=== PATIENT | female | born 1970 | race American Indian/Alaskan Native ===

== ENCOUNTER 2020-10-07 19:12 | Observation (INO) | payer MEDICARE ==
[2020-10-07] MEDS ORDERED: ALBUTEROL 2.5 MG/3 ML NEBU IH ONE ×2 (19:26→22:13)
[2020-10-07] MEDS ORDERED: dexAMETHasone 20 MG/5 ML VIAL IV ONE (19:26)
[2020-10-07] MEDS ORDERED: IPRATROPIUM 0.02% NEBU 2.5 ML IH ONE ×2 (19:26→22:13)
--- NOTE | 2020-10-07 19:28 | Event Note ---
ED Screening Note ED Screening Note: chest tightness, SOB, wheezing, cough that began yesterday used breathing treatment and inhaler without much relief no fever, n/v/d no sick contact no recent travel recently discharged from the hospital PMHx asthma, HTN This initial assessment/diagnostic orders/clinical plan/treatment(s) is/are subject to change based on patients health status, clinical progression and re- assessment by fellow clinical providers in the ED. Further treatment and workup at subsequent clinical providers discretion. Patient/guardian urged not to elope from the ED as their condition may be serious if not clinically assessed and managed. Initial orders include: labs, CXR, meds
[2020-10-07 19:43] LABS: Basophils # (Auto) 0.1 K/mm3 (0.0-0.1); Basophils % (Auto) 1.2 % (0.0-1.8); Eosinophils # (Auto) 0.4 K/mm3 (0.0-0.4); Eosinophils % (Auto) 7.8 % (0.0-4.3); Hematocrit 34.5 % (30.3-42.9); Hemoglobin 11.6 gm/dl (10.1-14.3); Lymphocytes # (Auto) 2.1 K/mm3 (1.2-5.4); Lymphocytes % (Auto) 39.1 % (13.4-35.0); Mean Corpuscular HGB Conc 34 % (30-34); Mean Corpuscular Volume 96 fl (79-97); Monocytes # (Auto) 0.4 K/mm3 (0.0-0.8); Monocytes % (Auto) 7.7 % (0.0-7.3); Platelet Count 209 K/mm3 (140-440); Red Cell Distribution Width 13.3 % (13.2-15.2)
[2020-10-07 20:40] LABS: Albumin 3.4 g/dL (3.9-5); Calcium 8.7 mg/dL (8.4-10.2)
--- NOTE | 2020-10-07 21:57 | XRay Report ---
CHEST 2 VIEWS INDICATION / CLINICAL INFORMATION: SOB, cough, chest tightness. COMPARISON: 10/01/2020 FINDINGS: SUPPORT DEVICES: Stable, satisfactory device positioning. HEART / MEDIASTINUM: Cardiac silhouette may be slightly enlarged when compared to 10/01/2020. No signi ficant mediastinal or hilar contour abnormality. LUNGS / PLEURA: Increased interstitial opacities with Juan Francisco B-lines. Possible small bilateral pleura l effusions. No pneumothorax. ADDITIONAL FINDINGS: No significant additional findings. IMPRESSION: 1. Findings concerning for mild-moderate CHF/pulmonary edema. Signer Name: Leo Bradley MD Signed: 10/07/2020 9:53 PM Workstation Name: [id number]
[2020-10-07] MEDS ORDERED: MAGNESIUM SULFATE 2 GM/50 ML BAG IV ONE (22:03)
[2020-10-07] MEDS ORDERED: methylPREDNISolone Sod Succinate 125 MG/2 ML INJ IV ONE (22:03)
--- NOTE | 2020-10-07 22:07 | Emergency Department Report ---
HPI - General Chief Complaint: Dyspnea/Respdistress Time Seen by Provider: 10/07/20 19:23 - HPI HPI: Room 34 The patient is a 50-year-old female present with a chief complaint of cough and shortness of breath. The patient states she presents emergency department for shortness of breath which began this morning. Patient states for the past 3 days she has had a cough occasionally productive of pink frothy sputum. Patient states she is also had chest soreness that worsens whenever she coughs. Patient denies history of fever, nausea/vomiting or known COVID-19 contacts. Of note the patient was recently admitted to this hospital and intubated secondary to presumed opiate overdose. Patient was eventually discharged 10/02/2020 ED Past Medical Hx - Past Medical History Previous Medical History?: Yes Hx Hypertension: Yes Hx Psychiatric Treatment: Yes (depression) Hx Asthma: Yes Additional medical history: Pacemaker. DDD - Surgical History Past Surgical History?: Yes Hx Pacemaker: Yes Additional Surgical History: Pacemaker. gastric bypass - Family History Family history: no significant - Social History Smoking Status: Former Smoker (None x1 year) Substance Use Type: None (Denies illicit drug use) - Medications Home Medications: Home Medications Medication Instructions Recorded Confirmed Last Taken Type Gabapentin [Neurontin] 600 mg PO Q8H 09/30/20 09/30/20 Unknown History Zolpidem [Ambien] 10 mg PO QHS PRN 09/30/20 09/30/20 Unknown History oxyCODONE /ACETAMINOPHEN [Percocet 1 tab PO Q8H PRN 09/30/20 09/30/20 Unknown H istory 5/325 mg] tiZANidine [Zanaflex 4mg TAB] 4 mg PO QHS PRN 09/30/20 09/30/20 Unknown History Sertraline [Zoloft] 150 mg PO QDAY 30 Days #30 tab 10/02/20 Unknown Rx Ziprasidone [Geodon] 40 mg PO BID 10/02/20 10/02/20 Unknown History traZODone [Desyrel] 100 mg PO QHS 10/02/20 10/02/20 Unknown History ED Review of Systems ROS: Stated complaint: BOLA/CHEST TIGHTNESS Other details as noted in HPI Constitutional: denies: fever Eyes: denies: eye pain ENT: denies: throat pain Respiratory: cough, shortness of breath Cardiovascular: dyspnea on exertion Endocrine: no symptoms reported Gastrointestinal: denies: nausea, vomiting Genitourinary: denies: dysuria Musculoskeletal: myalgia (Chest soreness with cough) Neurological: denies: headache Physical Exam - Physical Exam Vital Signs: Vital Signs 10/07/20 10/07/20 19:13 21:20 Temperature 99.1 F Pulse Rate 22 L Pulse Rate [ 66 Bilateral Throughout] Respiratory 22 Rate Respiratory 24 Rate [Bilateral Throughout] Blood Pressure 184/110 O2 Sat by Pulse 95 Oximetry Physical Exam: GENERAL: The patient is well-developed well-nourished female sitting on stretcher appearing to be in mild discomfort. [] HEENT: Normocephalic. Atraumatic. Extraocular motions are intact. Patient has moist mucous membranes. NECK: Supple. Trachea midline CHEST/LUNGS: Severely diminished with diffuse wheezing. There is no respiratory distress noted. HEART/CARDIOVASCULAR: Regular. There is no tachycardia. There is no gallop rub or murmur. ABDOMEN: Abdomen is soft, nontender. Patient has normal bowel sounds. There is no abdominal distention. SKIN: There is no rash. There is trace bilateral lower extremity edema edema. There is no diaphoresis. NEURO: The patient is awake, alert, and oriented. The patient is cooperative. The patient has no focal neurologic deficits. The patient has normal speech MUSCULOSKELETAL:There is no evidence of acute injury. ED Course Vital Signs 10/07/20 10/07/20 19:13 21:20 Temperature 99.1 F Pulse Rate 22 L Pulse Rate [ 66 Bilateral Throughout] Respiratory 22 Rate Respiratory 24 Rate [Bilateral Throughout] Blood Pressure 184/110 O2 Sat by Pulse 95 Oximetry ED Medical Decision Making - Lab Data Result diagrams: 10/07/20 19:32 10/07/20 19:32 Laboratory Tests 10/07/20 10/07/20 10/07/20 19:32 19:32 19:32 WBC 5.5 RBC 3.60 L Hgb 11.6 Hct 34.5 MCV 96 MCH 32 MCHC 34 RDW 13.3 Plt Count 209 Lymph % (Auto) 39.1 H [place] % (Auto) 7.7 H Eos % (Auto) 7.8 H Baso % (Auto) 1.2 Lymph # (Auto) 2.1 [place] # (Auto) 0.4 Eos # (Auto) 0.4 Baso # (Auto) 0.1 Seg Neutrophils % 44.2 Seg Neutrophils # 2.4 Sodium 138 Potassium 3.9 Chloride 105.5 Carbon Dioxide 22 Anion Gap 14 BUN 13 Creatinine 1.0 Estimated GFR 58 BUN/Creatinine Ratio 13 Glucose 84 Calcium 8.7 Total Bilirubin 0.30 AST 23 ALT 16 Alkaline Phosphatase 52 Total Creatine Kinase 168 H CK-MB (CK-2) 2.5 CK-MB (CK-2) Rel Index 1.4 Troponin T < 0.010 NT-Pro-B Natriuret Pep 19444 H Total Protein 6.1 L Albumin 3.4 L Albumin/Globulin Ratio 1.3 - EKG Data -: EKG Interpreted by Me Rate: normal - EKG Data When compared to previous EKG there are: previous EKG unavailable Interpretation: other (AV paced rhythm) - Radiology Data Radiology results: report reviewed (Chest x-ray), image reviewed (Chest x-ray) interpreted by me: Chest [id number] congestion. No pneumothorax. No definite focal infiltrate [facility] [address] [place] [address] XRay Report Signed Patient: TOÑA MAYER MR#: [id number] : 11/26/1969 Acct:[id number] Age/Sex: 50 / F ADM Date: 10/07/20 Loc: ED Attending Dr: Ordering Physician: JAIME KAUFMAN Date of Service: 10/07/20 Procedure(s): XR chest routine 2V Accession Number(s): [id number] cc: JAIME KAUFMAN Fluoro Time In Minutes: CHEST 2 VIEWS INDICATION / CLINICAL INFORMATION: SOB, cough, chest tightness. COMPARISON: 10/01/2020 FINDINGS: SUPPORT DEVICES: Stable, satisfactory device positioning. HEART / MEDIASTINUM: Cardiac silhouette may be slightly enlarged when compared to 10/01/2020. No significant mediastinal or hilar contour abnormality. LUNGS / PLEURA: Increased interstitial opacities with [place] Francisco B-lines. Possible small bilateral pleural effusions. No pneumothorax. ADDITIONAL FINDINGS: No significant additional findings. IMPRESSION: 1. Findings concerning for mild-moderate CHF/pulmonary edema. Signer Name: Farzad Bradley MD Signed: 10/07/2020 9:53 PM Workstation Name: [id number] Transcribed By: RH Dictated By: FARZAD BRADLEY III Electronically Authenticated By: FARZAD BRADLEY III Signed Date/Time: 10/07/202152 DD/ 50 TD/TT: - Differential Diagnosis Asthma exacerbation, bronchitis, pneumonia, new onset CHF Critical care attestation.: If time is entered above; I have spent that time in minutes in the direct care of this critically ill patient, excluding procedure time. ED Disposition Clinical Impression: New onset of congestive heart failure, Shortness of breath Disposition: OP ADMIT IP TO THIS HOSP Is pt being admited?: Yes Does the pt Need Aspirin: Yes Condition: Fair Time of Disposition: 22:50 (Hospitalist paged (Dr Seaman))
[2020-10-07] MEDS ORDERED: cloNIDine 0.2 MG TAB PO ONE (22:14)
[2020-10-07] MEDS ORDERED: fentaNYL 100 MCG/2 ML INJ IV ONE (22:19)
[2020-10-07] MEDS ORDERED: ONDANSETRON 4 MG/2 ML INJ IV ONE (22:19)
[2020-10-07 22:35] LABS: Creatine Kinase MB 2.5 ng/mL (0.0-4.0)
[2020-10-07] MEDS ORDERED: FUROSEMIDE 40 MG/4 ML INJ IV ONE (22:39)
[2020-10-07] MEDS ORDERED: ASPIRIN 325 MG TAB PO ONE (22:50)
[2020-10-07] MEDS ORDERED: ONDANSETRON 4 MG/2 ML INJ IV PRN (23:35)
[2020-10-07] MEDS ORDERED: MAGNESIUM HYDROXIDE (MOM) ORAL LIQD UDC PO PRN (23:35)
--- NOTE | 2020-10-07 23:48 | History and Physical Report ---
History of Present Illness Date of examination: 10/07/20 Date of admission: 10/07/20 22:51 Chief complaint: Cough Shortness of Breath History of present illness: 50-year-old female with known history of hypertension, asthma, depression, and history of pacemaker presenting to the emergency room today complaining of shortness of breath. Shortness of breath was said to have started early this morning. She has had occasional cough for the past 3 days which has been productive for some frothy pinkish sputum. Cough is associated with some mild chest soreness. Patient denies any fever or chills, no nausea vomiting, denies any sick contacts. Upon arrival in the emergency room he was found to be wheezing. Work-up reveals elevated BNP. Chest x-ray reveals pulmonary congestion. Patient is being admitted for new onset CHF. Past History Past Medical History: hypertension, other (Asthma,DDD,Depression) Past Surgical History: Other (Pacemaker placement,Gastric Bypass.) Social history: smoking (Former smoker) Family history: no significant family history Medications and Allergies Allergies Allergy/AdvReac Type Severity Reaction Status Date / Time No Known Allergies Allergy Verified 10/07/20 19:17 Home Medications Medication Instructions Recorded Confirmed Last Taken Type Gabapentin [Neurontin] 600 mg PO BID 09/30/20 10/08/20 Unknown History Zolpidem [Ambien] 10 mg PO QHS PRN 09/30/20 10/08/20 Unknown History oxyCODONE /ACETAMINOPHEN [Percocet 1 tab PO Q8H PRN 09/30/20 10/08/20 Unknown History 5/325 mg] tiZANidine [Zanaflex 4mg TAB] 4 mg PO QHS PRN 09/30/20 10/08/20 Unknown History Sertraline [Zoloft] 150 mg PO QDAY 30 Days #30 tab 10/02/20 10/08/20 Unknown Rx Ziprasidone [Geodon] 80 mg PO HS 10/02/20 10/08/20 Unknown History traZODone [Desyrel] 100 mg PO QHS 10/02/20 10/08/20 Unknown History Ziprasidone [Geodon] 40 mg PO AC 10/08/20 10/08/20 Unknown History Active Meds: Active Medications Acetaminophen (Acetaminophen 325 Mg Tab) 650 mg PO Q4H PRN PRN Reason: Pain MILD(1-3)/Fever >100.5/RASMUSSEN Enoxaparin Sodium (Enoxaparin 40 Mg/0.4 Ml Inj) 40 mg SUB-Q QDAY@2200 REPLACED BY [facility]; Protocol Furosemide (Furosemide 40 Mg/4 Ml Inj) 40 mg IV BID@0600,1800 [facility] Magnesium Hydroxide (Magnesium Hydroxide (Mom) Oral Liqd Udc) 30 ml PO Q4H PRN PRN Reason: Constipation Morphine Sulfate (Morphine 2 Mg/1 Ml Inj) 2 mg IV Q4H PRN PRN Reason: Pain, Moderate (4-6) Ondansetron HCl (Ondansetron 4 Mg/2 Ml Inj) 4 mg IV Q8H PRN PRN Reason: Nausea And Vomiting Sodium Chloride (Sodium Chloride 0.9% 10 Ml Flush Syringe) 10 ml IV BID REPLACED BY [facility] Sodium Chloride (Sodium Chloride 0.9% 10 Ml Flush Syringe) 10 ml IV PRN PRN PRN Reason: LINE FLUSH Review of Systems Constitutional: no fever, no chills Ears, nose, mouth and throat: no nasal congestion, no sore throat Cardiovascular: dyspnea on exertion, no chest pain, no palpitations Respiratory: cough, shortness of breath Gastrointestinal: no abdominal pain, no nausea, no vomiting, no diarrhea Genitourinary Female: no flank pain, no dysuria, no hematuria Musculoskeletal: no neck pain, no low back pain Integumentary: no rash, no pruritis Neurological: no headaches, no confusion Psychiatric: no anxiety, no depression Exam - Constitutional Vitals: Temp Pulse Resp BP Pulse Ox 99.1 F 73 15 154/94 99 10/07/20 19:13 10/07/20 23:01 10/07/20 23:01 10/07/20 23:01 10/07/20 23:01 General appearance: Present: no acute distress, well-nourished - EENT Eyes: Present: PERRL, EOM intact. Absent: scleral icterus ENT: hearing intact, clear oral mucosa, dentition normal - Neck Neck: Present: supple, normal ROM - Respiratory Respiratory effort: normal Respiratory: bilateral: rales - Cardiovascular Rhythm: regular Heart Sounds: Present: S1 & S2. Absent: gallop, systolic murmur, diastolic murmur, rub, click - Extremities Extremities: no ischemia, pulses intact, pulses symmetrical, No edema, normal temperature, normal color, Full ROM Peripheral Pulses: within normal limits - Abdominal General gastrointestinal: Present: soft, non-tender, non-distended, normal bowel sounds. Absent: mass - Integumentary Integumentary: Present: clear, warm, dry - Musculoskeletal Musculoskeletal: strength equal bilaterally - Psychiatric Psychiatric: appropriate mood/affect, intact judgment & insight, memory intact, cooperative - Neurologic Neurologic: CNII-XII intact, no focal deficits, moves all extremities HEART Score - HEART Score Troponin: Troponin T < 0.010 ng/mL (0.00-0.029) 10/07/20 19:32 Results - Labs CBC & Chem 7: 10/08/20 04:39 10/08/20 04:39 Labs: Abnormal lab results 10/07/20 10/07/20 10/07/20 Range/Units 19:32 19:32 19:32 RBC 3.60 L (3.65-5.03) M/mm3 Lymph % (Auto) 39.1 H (13.4-35.0) % [place] % (Auto) 7.7 H (0.0-7.3) % Eos % (Auto) 7.8 H (0.0-4.3) % Total Creatine Kinase 168 H (30-135) units/L NT-Pro-B Natriuret Pep 63784 H (0-900) pg/mL Total Protein 6.1 L (6.3-8.2) g/dL Albumin 3.4 L (3.9-5) g/dL Assessment and Plan - Patient Problems (1) New onset of congestive heart failure Current Visit: Yes Status: Acute Plan to address problem: Patient admitted and placed on telemetry. Patient will be placed on diuretics. Will monitor inputs and outputs and also monitor daily weight. Patient be scheduled for echocardiogram. We will request evaluation by information technology associate. (2) DVT prophylaxis Current Visit: No Status: Acute Plan to address problem: Patient placed on subcutaneous Lovenox. (3) Full code status Current Visit: No Status: Acute Plan to address problem: Patient is a full code.
[2020-10-08] MEDS: MORPHINE 2 MG/1 ML INJ IV PRN ×2 (00:39→08:05)
[2020-10-08] MEDS: IPRATROPIUM/ALBUTEROL SULFATE 3 ML AMPUL.NEB IH SCH ×4 (02:03→20:28)
[2020-10-08] MEDS: ACETAMINOPHEN 325 MG TAB PO PRN ×3 (04:20→21:26)
[2020-10-08 05:03] LABS: Basophils % (Auto) 0.3 % (0.0-1.8); Eosinophils % (Auto) 0.1 % (0.0-4.3); Hematocrit 33.9 % (30.3-42.9); Hemoglobin 11.4 gm/dl (10.1-14.3); Lymphocytes # (Auto) 0.4 K/mm3 (1.2-5.4); Lymphocytes % (Auto) 9.2 % (13.4-35.0); Mean Corpuscular HGB Conc 34 % (30-34); Mean Corpuscular Volume 97 fl (79-97); Monocytes # (Auto) 0.1 K/mm3 (0.0-0.8); Monocytes % (Auto) 2.3 % (0.0-7.3); Platelet Count 195 K/mm3 (140-440); Red Blood Count 3.52 M/mm3 (3.65-5.03); Red Cell Distribution Width 13.3 % (13.2-15.2)
[2020-10-08] MEDS: FUROSEMIDE 40 MG/4 ML INJ IV SCH ×2 (05:05→18:41)
[2020-10-08 05:15] LABS: INR 1.06 (0.87-1.13)
[2020-10-08 05:17] LABS: Calcium 8.7 mg/dL (8.4-10.2)
[2020-10-08] MEDS: BUDESONIDE 0.5 MG/2 ML NEBU IH SCH ×2 (08:55→20:28)
[2020-10-08] MEDS: ARFORMOTEROL 15 MCG/2 ML NEBU IH SCH ×2 (08:55→20:28)
--- NOTE | 2020-10-08 10:37 | Event Note ---
Date: 10/08/20 Patient's primary processing manager is [facility] agricultural extension specialist, please refer to them for further cardiac care.
[2020-10-08] MEDS ORDERED: oxyCODONE /ACETAMINOPHEN 5-325MG TAB PO PRN (11:30)
[2020-10-08] MEDS: SERTRALINE 100 MG TAB PO SCH (12:02)
[2020-10-08] MEDS ORDERED: ZIPRASIDONE 40 MG CAP PO ONE (13:21)
[2020-10-08] MEDS: GABAPENTIN 300 MG CAP PO SCH ×2 (14:08→21:25)
--- NOTE | 2020-10-08 14:46 | Consultation ---
History of Present Illness Consult date: 10/08/20 Requesting physician: CHRISTINE CONRAD Consult reason: congestive heart failure History of present illness: The pt is a 50-year-old female with a past medical history of high-grade AV block/dual-chamber permanent pacemaker, paroxysmal SVT, hypertension, DM, JOSE, tobacco use, history of sarcoidosis, questionable history of gastric bypass, chronic back pain and chronic pain syndrome. She is followed in our office by Dr. Noe (established care in 06/2020 after relocating from [place] to [place]). She presented with c/o SOB and chest pain for 1 day prior to arrival. Pt also reports cough with frothy pink sputum. Pt describes her chest pain as precordial sharp pain which is only present with coughing or deep inspiration, no current chest pain. Following arrival, pro-BNP >11K, BP 184/110, CXR shows pulmonary edema. LHC done in [place] in 07/2012 and 05/2019 showed normal coronaries. tte done 02/2020 showed EF 45-50%, grade II diastolic dysfunction, pacemaker wire in RV, mild MR. Past History Past Medical History: hypertension, other (as per HPI) Past Surgical History: Other (Pacemaker placement,Gastric Bypass.) Social history: smoking (Former smoker) Family history: no significant family history Medications and Allergies Allergies Allergy/AdvReac Type Severity Reaction Status Date / Time No Known Allergies Allergy Verified 10/07/20 19:17 Home Medications Medication Instructions Recorded Confirmed Last Taken Type Gabapentin [Neurontin] 600 mg PO BID 09/30/20 10/08/20 Unknown History Zolpidem [Ambien] 10 mg PO QHS PRN 09/30/20 10/08/20 Unknown History oxyCODONE /ACETAMINOPHEN [Percocet 1 tab PO Q8H PRN 09/30/20 10/08/20 Unknown History 5/325 mg] tiZANidine [Zanaflex 4mg TAB] 4 mg PO QHS PRN 09/30/20 10/08/20 Unknown History Sertraline [Zoloft] 150 mg PO QDAY 30 Days #30 tab 10/02/20 10/08/20 Unknown Rx Ziprasidone [Geodon] 80 mg PO HS 10/02/20 10/08/20 Unknown History traZODone [Desyrel] 100 mg PO QHS 10/02/20 10/08/20 Unknown History Ziprasidone [Geodon] 40 mg PO AC 10/08/20 10/08/20 Unknown History Active Meds: Active Medications Acetaminophen (Acetaminophen 325 Mg Tab) 650 mg PO Q4H PRN PRN Reason: Pain MILD(1-3)/Fever >100.5/RASMUSSEN Last Admin: 10/08/20 12:01 Dose: 650 mg Documented by: Albuterol/Ipratropium (Ipratropium/Albuterol Sulfate 3 Ml Ampul.Neb) 1 ampul IH Q6HRT [facility] Last Admin: 10/08/20 09:13 Dose: 1 ampul Documented by: Arformoterol Tartrate (Arformoterol 15 Mcg/2 Ml Nebu) 15 mcg IH Q12HRT [facility] Last Admin: 10/08/20 08:55 Dose: 15 mcg Documented by: Budesonide (Budesonide 0.5 Mg/2 Ml Nebu) 0.5 mg IH Q12HRT [facility] Last Admin: 10/08/20 08:55 Dose: 0.5 mg Documented by: Enoxaparin Sodium (Enoxaparin 40 Mg/0.4 Ml Inj) 40 mg SUB-Q QDAY@2200 [facility]; Protocol Furosemide (Furosemide 40 Mg/4 Ml Inj) 40 mg IV BID@0600,1800 [facility] Last Admin: 10/08/20 05:05 Dose: 40 mg Documented by: Gabapentin (Gabapentin 300 Mg Cap) 600 mg PO BID [facility] Last Admin: 10/08/20 14:08 Dose: 600 mg Documented by: Magnesium Hydroxide (Magnesium Hydroxide (Mom) Oral Liqd Udc) 30 ml PO Q4H PRN PRN Reason: Constipation Morphine Sulfate (Morphine 2 Mg/1 Ml Inj) 2 mg IV Q4H PRN PRN Reason: Pain, Moderate (4-6) Last Admin: 10/08/20 08:05 Dose: 2 mg Documented by: Ondansetron HCl (Ondansetron 4 Mg/2 Ml Inj) 4 mg IV Q8H PRN PRN Reason: Nausea And Vomiting Oxycodone/Acetaminophen (Oxycodone /Acetaminophen 5-325mg Tab) 1 tab PO Q8H PRN PRN Reason: Pain , Severe (7-10) Sertraline HCl (Sertraline 100 Mg Tab) 150 mg PO QDAY [facility] Last Admin: 10/08/20 12:02 Dose: 150 mg Documented by: Sodium Chloride (Sodium Chloride 0.9% 10 Ml Flush Syringe) 10 ml IV BID [facility] Last Admin: 10/08/20 12:02 Dose: 10 ml Documented by: Sodium Chloride (Sodium Chloride 0.9% 10 Ml Flush Syringe) 10 ml IV PRN PRN PRN Reason: LINE FLUSH Last Admin: 10/08/20 05:05 Dose: 10 ml Documented by: Tizanidine HCl (Tizanidine Tab 4 Mg Tab) 4 mg PO QHS PRN PRN Reason: Muscle Spasm Trazodone HCl (Trazodone 100 Mg Tab) 100 mg PO QHS [facility] Review of Systems Constitutional: no weight loss, no weight gain, no fever, no chills, no sweats Ears, nose, mouth and throat: no ear pain, no nose pain, no sinus pressure, no sinus pain Cardiovascular: chest pain, shortness of breath, dyspnea on exertion, high blood pressure, no palpitations, no rapid/irregular heart beat, no edema, no syncope, no lightheadedness, no leg edema Respiratory: cough with sputum, shortness of breath, dyspnea on exertion, pain on inspiration, no congestion, no wheezing Gastrointestinal: no abdominal pain, no nausea, no vomiting, no diarrhea, no constipation, no change in bowel habits Genitourinary Female: no pelvic pain, no flank pain, no dysuria, no urinary frequency, no urgency Musculoskeletal: no neck stiffness, no neck pain, no shooting arm pain, no arm numbness/tingling, no low back pain, no shooting leg pain Integumentary: no rash, no pruritis, no redness, no sores, no wounds Neurological: no head injury, no paralysis, no weakness, no parathesias, no numbness, no tingling, no seizures, no syncope Psychiatric: no anxiety Endocrine: no cold intolerance, no heat intolerance Hematologic/Lymphatic: no easy bruising, no easy bleeding Allergic/Immunologic: no urticaria Physical Examination Vital Signs Temp Pulse Resp BP Pulse Ox 99.1 F 22 L 22 184/110 95 10/07/20 19:13 10/07/20 19:13 10/07/20 19:13 10/07/20 19:13 10/07/20 19:13 General appearance: no acute distress HEENT: Positive: PERRL, Normocephaly, Mucus Membranes Moist Neck: Positive: neck supple, trachea midline Cardiac: Positive: Reg Rate and Rhythm, S1/S2 Lungs: Positive: Decreased Breath Sounds Neuro: Positive: Grossly Intact Abdomen: Negative: Tender Skin: Negative: Rash Musculoskeletal: No Pain Extremities: Absent: edema Results 10/08/20 04:39 10/08/20 04:39 Cardiac Enzymes 10/07/20 10/07/20 Range/Units 19:32 19:32 AST 23 (5-40) units/L CK-MB (CK-2) 2.5 (0.0-4.0) ng/mL Coagulation 10/08/20 Range/Units 04:39 PT 13.6 (12.2-14.9) Sec. INR 1.06 (0.87-1.13) CBC 10/07/20 10/08/20 Range/Units 19:32 04:39 WBC 5.5 4.3 L (4.5-11.0) K/mm3 RBC 3.60 L 3.52 L (3.65-5.03) M/mm3 Hgb 11.6 11.4 (10.1-14.3) gm/dl Hct 34.5 33.9 (30.3-42.9) % Plt Count 209 195 (140-440) K/mm3 Lymph # (Auto) 2.1 0.4 L (1.2-5.4) K/mm3 [place] # (Auto) 0.4 0.1 (0.0-0.8) K/mm3 Eos # (Auto) 0.4 0.0 (0.0-0.4) K/mm3 Baso # (Auto) 0.1 0.0 (0.0-0.1) K/mm3 Comprehensive Metabolic Panel 10/07/20 10/08/20 Range/Units 19:32 04:39 Sodium 138 139 (137-145) mmol/L Potassium 3.9 3.8 (3.6-5.0) mmol/L Chloride 105.5 103.4 (98-107) mmol/L Carbon Dioxide 22 22 (22-30) mmol/L BUN 13 11 (7-17) mg/dL Creatinine 1.0 1.2 (0.6-1.2) mg/dL Glucose 84 203 H (65-100) mg/dL Calcium 8.7 8.7 (8.4-10.2) mg/dL AST 23 (5-40) units/L ALT 16 (7-56) units/L Alkaline Phosphatase 52 (35-129) units/L Total Protein 6.1 L (6.3-8.2) g/dL Albumin 3.4 L (3.9-5) g/dL - Imaging and Cardiology Echo: pending, report reviewed (tte done 02/2020 showed EF 45-50%, grade II diastolic dysfunction, pacemaker wire in RV, mild MR. ) Cardiac cath: report reviewed (LHC done in [place] in 07/2012 and 05/2019 showed normal coronaries. ) EKG: report reviewed, image reviewed EKG interpretations - Telemetry EKG Rhythm: Paced Pacemaker: ventricular pacing w/capt Assessment and Plan Agree with IV lasix. Resume home Toprol XL. Chest pain currently resolved - appears pleuritic in etiology. LHC done in [place] in 07/2012 and 05/2019 showed normal coronaries. F/u tte. Anticipate d/c within next 24-48Hr. The patient has been seen in conjunction with Dr. Raj Marshall who agrees with the assessment and plan of care. - Patient Problems (1) Acute heart failure Current Visit: Yes Status: Acute (2) Pulmonary edema Current Visit: Yes Status: Acute (3) Chest pain Current Visit: Yes Status: Acute (4) Accelerated hypertension Current Visit: Yes Status: Acute (5) History of PSVT (paroxysmal supraventricular tachycardia) Current Visit: Yes Status: Chronic (6) Cardiac pacemaker in situ Current Visit: Yes Status: Chronic (7) Diabetes Current Visit: Yes Status: Chronic (8) History of sarcoidosis Current Visit: Yes Status: Chronic (9) Normal coronary angiogram Current Visit: Yes Status: Chronic
--- NOTE | 2020-10-08 20:12 | Progress Note ---
Assessment and Plan Assessment and plan: --Atypical chest pain; Serial cardiac enzymes, continue current cardiac medications Cardiology following --Acute on diastolic congestive heart failure; EF 45 to 50% in 02/2020, antifailure medications Input output monitoring, follow echocardiogram and Cardiology evaluation and recommendations --History of high-grade AV block; status post dual-chamber PPM, interrogation if needed Cardiology following --Hypertension; Moderate control, continue current antihypertensives As needed medications --Peripheral neuropathy; on gabapentin Supportive care --Chronic pain syndrome; patient is multiple on multiple medications Closely monitor, will see pain management upon discharge --Type 2 diabetes mellitus; Accu-Chek sliding scale coverage ADA diet Long-acting insulin as needed --Obesity BMI 33.1; Patient needs weight reduction when medically stable --Possible JOSE; CPAP and BiPAP at night Patient needs outpatient sleep study if not done already --History of sarcoidosis; Stable closely monitor --DVT prophylaxis; Lovenox We will closely monitor the patient and adjust management as needed Plan of care reviewed with the patient and her nurse History Interval history: Seen and examined the patient at the bedside Patient's chart and medications reviewed Patient complains of mild shortness of breath and some chest tightness Slightly improved since admission Vital signs noted Hospitalist Physical - Constitutional Vitals: Temp Pulse Resp BP Pulse Ox 98.1 F 70 20 147/73 97 10/08/20 11:40 10/08/20 16:10 10/08/20 16:10 10/08/20 11:40 10/08/20 12:00 General appearance: Present: no acute distress, well-nourished, obese - EENT Eyes: Present: PERRL, EOM intact - Neck Neck: Present: supple, normal ROM - Respiratory Respiratory effort: normal Respiratory: bilateral: diminished, rales, negative: rhonchi, wheezing - Cardiovascular Rhythm: regular Heart Sounds: Present: S1 & S2 - Extremities Extremities: no ischemia, No edema - Abdominal General gastrointestinal: soft, non-tender, non-distended, normal bowel sounds - Integumentary Integumentary: Present: clear, warm - Psychiatric Psychiatric: appropriate mood/affect, cooperative - Neurologic Neurologic: CNII-XII intact, moves all extremities HEART Score - HEART Score Troponin: Troponin T < 0.010 ng/mL (0.00-0.029) 10/08/20 15:58 Results - Labs CBC & Chem 7: 10/08/20 04:39 10/08/20 04:39 Labs: Laboratory Last Values WBC 4.3 K/mm3 (4.5-11.0) L 10/08/20 04:39 RBC 3.52 M/mm3 (3.65-5.03) L 10/08/20 04:39 Hgb 11.4 gm/dl (10.1-14.3) 10/08/20 04:39 Hct 33.9 % (30.3-42.9) 10/08/20 04:39 MCV 97 fl (79-97) 10/08/20 04:39 MCH 33 pg (28-32) H 10/08/20 04:39 MCHC 34 % (30-34) 10/08/20 04:39 RDW 13.3 % (13.2-15.2) 10/08/20 04:39 Plt Count 195 K/mm3 (140-440) 10/08/20 04:39 Lymph % (Auto) 9.2 % (13.4-35.0) L 10/08/20 04:39 [place] % (Auto) 2.3 % (0.0-7.3) 10/08/20 04:39 Eos % (Auto) 0.1 % (0.0-4.3) 10/08/20 04:39 Baso % (Auto) 0.3 % (0.0-1.8) 10/08/20 04:39 Lymph # (Auto) 0.4 K/mm3 (1.2-5.4) L 10/08/20 04:39 [place] # (Auto) 0.1 K/mm3 (0.0-0.8) 10/08/20 04:39 Eos # (Auto) 0.0 K/mm3 (0.0-0.4) 10/08/20 04:39 Baso # (Auto) 0.0 K/mm3 (0.0-0.1) 10/08/20 04:39 Seg Neutrophils % 88.1 % (40.0-70.0) H 10/08/20 04:39 Seg Neutrophils # 3.8 K/mm3 (1.8-7.7) 10/08/20 04:39 PT 13.6 Sec. (12.2-14.9) 10/08/20 04:39 INR 1.06 (0.87-1.13) 10/08/20 04:39 Sodium 139 mmol/L (137-145) 10/08/20 04:39 Potassium 3.8 mmol/L (3.6-5.0) 10/08/20 04:39 Chloride 103.4 mmol/L (98-107) 10/08/20 04:39 Carbon Dioxide 22 mmol/L (22-30) 10/08/20 04:39 Anion Gap 17 mmol/L 10/08/20 04:39 BUN 11 mg/dL (7-17) 10/08/20 04:39 Creatinine 1.2 mg/dL (0.6-1.2) 10/08/20 04:39 Estimated GFR 47 ml/min 10/08/20 04:39 BUN/Creatinine Ratio 9 % 10/08/20 04:39 Glucose 203 mg/dL (65-100) H 10/08/20 04:39 Calcium 8.7 mg/dL (8.4-10.2) 10/08/20 04:39 Total Bilirubin 0.30 mg/dL (0.1-1.2) 10/07/20 19:32 AST 23 units/L (5-40) 10/07/20 19:32 ALT 16 units/L (7-56) 10/07/20 19:32 Alkaline Phosphatase 52 units/L (35-129) 10/07/20 19:32 Total Creatine Kinase 168 units/L (30-135) H 10/07/20 19:32 CK-MB (CK-2) 2.5 ng/mL (0.0-4.0) 10/07/20 19:32 CK-MB (CK-2) Rel Index 1.4 (0-4) 10/07/20 19:32 Troponin T < 0.010 ng/mL (0.00-0.029) 10/08/20 15:58 NT-Pro-B Natriuret Pep 26240 pg/mL (0-900) H 10/07/20 19:32 Total Protein 6.1 g/dL (6.3-8.2) L 10/07/20 19:32 Albumin 3.4 g/dL (3.9-5) L 10/07/20 19:32 Albumin/Globulin Ratio 1.3 % 10/07/20 19:32 Canela/IV: Voiding Method Toilet Active Medications - Current Medications Current Medications: Generic Name Dose Route Start Last Admin Trade Name Freq PRN Reason Stop Dose Admin Acetaminophen 650 mg 10/07/20 23:35 10/08/20 12:01 Acetaminophen 325 Mg Tab PO 650 mg Q4H PRN Administration Pain MILD(1-3)/Fever >100.5/RASMUSSEN Albuterol/Ipratropium 1 ampul 10/08/20 02:00 10/08/20 16:06 Ipratropium/Albuterol Sulfate 3 Ml Ampul.Neb IH 1 ampul Q6HRT FABIAN Administration Arformoterol Tartrate 15 mcg 10/08/20 08:00 10/08/20 08:55 Arformoterol 15 Mcg/2 Ml Nebu IH 15 mcg Q12HRT FABIAN Administration Aspirin 81 mg 10/09/20 10:00 Aspirin 81 Mg Tab Chew PO QDAY FABIAN Budesonide 0.5 mg 10/08/20 08:00 10/08/20 08:55 Budesonide 0.5 Mg/2 Ml Nebu IH 0.5 mg Q12HRT FABIAN Administration Enoxaparin Sodium 40 mg 10/08/20 22:00 Enoxaparin 40 Mg/0.4 Ml Inj SUB-Q QDAY@2200 [facility] Protocol Furosemide 40 mg 10/08/20 06:00 10/08/20 18:41 Furosemide 40 Mg/4 Ml Inj IV 40 mg BID@0600,1800 FABIAN Administration Gabapentin 600 mg 10/08/20 12:00 10/08/20 14:08 Gabapentin 300 Mg Cap PO 600 mg BID FABIAN Administration Magnesium Hydroxide 30 ml 10/07/20 23:35 Magnesium Hydroxide (Mom) Oral Liqd Udc PO Q4H PRN Constipation Metoprolol Succinate 25 mg 10/09/20 10:00 Metoprolol Succinate Xl 25 Mg Tab PO QDAY [facility] Morphine Sulfate 2 mg 10/07/20 23:35 10/08/20 08:05 Morphine 2 Mg/1 Ml Inj IV 2 mg Q4H PRN Administration Pain, Moderate (4-6) Ondansetron HCl 4 mg 10/07/20 23:35 Ondansetron 4 Mg/2 Ml Inj IV Q8H PRN Nausea And Vomiting Oxycodone/Acetaminophen 1 tab 02/17/21 11:30 Oxycodone /Acetaminophen 5-325mg Tab PO Q8H PRN Pain , Severe (7-10) Sertraline HCl 150 mg 10/08/20 12:00 10/08/20 12:02 Sertraline 100 Mg Tab PO 150 mg QDAY FABIAN Administration Sodium Chloride 10 ml 10/08/20 10:00 10/08/20 12:02 Sodium Chloride 0.9% 10 Ml Flush Syringe IV 10 ml BID FABIAN Administration Sodium Chloride 10 ml 10/07/20 23:35 10/08/20 05:05 Sodium Chloride 0.9% 10 Ml Flush Syringe IV 10 ml PRN PRN Administration LINE FLUSH Tizanidine HCl 4 mg 10/08/20 22:00 Tizanidine Tab 4 Mg Tab PO QHS PRN Muscle Spasm Trazodone HCl 100 mg 10/08/20 22:00 Trazodone 100 Mg Tab PO QHS FABIAN
[2020-10-08] MEDS ORDERED: traZODone 100 MG TAB PO SCH (22:00)
[2020-10-08] MEDS ORDERED: NON-FORMULARY EACH (Gabapentin [Neurontin] 600 MG Tablet) PO SCH (22:00)
[2020-10-08] MEDS ORDERED: ENOXAPARIN 40 MG/0.4 ML INJ SUB-Q SCH (22:00)
[2020-10-08] MEDS ORDERED: tiZANidine TAB 4 MG TAB PO PRN (22:00)
[2020-10-09] MEDS: FUROSEMIDE 40 MG/4 ML INJ IV SCH (05:39)
[2020-10-09 05:47] LABS: Calcium 8.6 mg/dL (8.4-10.2)
[2020-10-09] MEDS: BUDESONIDE 0.5 MG/2 ML NEBU IH SCH (08:13)
[2020-10-09] MEDS: ARFORMOTEROL 15 MCG/2 ML NEBU IH SCH (08:13)
[2020-10-09] MEDS: IPRATROPIUM/ALBUTEROL SULFATE 3 ML AMPUL.NEB IH SCH ×2 (08:16→14:28)
[2020-10-09] MEDS: SERTRALINE 100 MG TAB PO SCH (09:20)
[2020-10-09] MEDS: GABAPENTIN 300 MG CAP PO SCH (09:20)
[2020-10-09] MEDS: ZIPRASIDONE 40 MG CAP PO SCH ×2 (09:58→14:23)
[2020-10-09] MEDS ORDERED: ASPIRIN 81 MG TAB CHEW PO SCH (10:00)
[2020-10-09] MEDS ORDERED: METOPROLOL SUCCINATE XL 25 MG TAB PO SCH (10:00)
--- NOTE | 2020-10-09 10:44 | Progress Note ---
Assessment and Plan Assessment and plan: --Atypical chest pain; Serial cardiac enzymes, continue current cardiac medications Cardiology following --Acute on chronic diastolic congestive heart failure; EF 45 to 50% in 02/2020, antifailure medications Input output monitoring, follow echocardiogram and Cardiology evaluation and recommendations --History of high-grade AV block; status post dual-chamber PPM, interrogation if needed Cardiology following --Hypertension; Moderate control, continue current antihypertensives As needed medications --Peripheral neuropathy; on gabapentin Supportive care --Chronic pain syndrome; patient is multiple on multiple medications Closely monitor, will see pain management upon discharge --Type 2 diabetes mellitus; Accu-Chek sliding scale coverage ADA diet Long-acting insulin as needed --Obesity BMI 33.1; Patient needs weight reduction when medically stable --Possible JOSE; CPAP and BiPAP at night Patient needs outpatient sleep study if not done already --History of sarcoidosis; Stable closely monitor --DVT prophylaxis; Lovenox We will closely monitor the patient and adjust management as needed Plan of care reviewed with the patient and her nurse Hospitalist Physical - Constitutional Vitals: Temp Pulse Resp BP Pulse Ox 98.5 F 69 17 141/88 98 10/09/20 03:55 10/09/20 09:19 10/09/20 08:00 10/09/20 09:19 10/09/20 08:14 General appearance: Present: no acute distress, well-nourished, obese HEART Score - HEART Score Troponin: Troponin T < 0.010 ng/mL (0.00-0.029) 10/08/20 15:58 Results - Labs CBC & Chem 7: 10/08/20 04:39 10/09/20 05:04 Labs: Laboratory Last Values WBC 4.3 K/mm3 (4.5-11.0) L 10/08/20 04:39 RBC 3.52 M/mm3 (3.65-5.03) L 10/08/20 04:39 Hgb 11.4 gm/dl (10.1-14.3) 10/08/20 04:39 Hct 33.9 % (30.3-42.9) 10/08/20 04:39 MCV 97 fl (79-97) 10/08/20 04:39 MCH 33 pg (28-32) H 10/08/20 04:39 MCHC 34 % (30-34) 10/08/20 04:39 RDW 13.3 % (13.2-15.2) 10/08/20 04:39 Plt Count 195 K/mm3 (140-440) 10/08/20 04:39 Lymph % (Auto) 9.2 % (13.4-35.0) L 10/08/20 04:39 [place] % (Auto) 2.3 % (0.0-7.3) 10/08/20 04:39 Eos % (Auto) 0.1 % (0.0-4.3) 10/08/20 04:39 Baso % (Auto) 0.3 % (0.0-1.8) 10/08/20 04:39 Lymph # (Auto) 0.4 K/mm3 (1.2-5.4) L 10/08/20 04:39 [place] # (Auto) 0.1 K/mm3 (0.0-0.8) 10/08/20 04:39 Eos # (Auto) 0.0 K/mm3 (0.0-0.4) 10/08/20 04:39 Baso # (Auto) 0.0 K/mm3 (0.0-0.1) 10/08/20 04:39 Seg Neutrophils % 88.1 % (40.0-70.0) H 10/08/20 04:39 Seg Neutrophils # 3.8 K/mm3 (1.8-7.7) 10/08/20 04:39 PT 13.6 Sec. (12.2-14.9) 10/08/20 04:39 INR 1.06 (0.87-1.13) 10/08/20 04:39 Sodium 143 mmol/L (137-145) 10/09/20 05:04 Potassium 3.6 mmol/L (3.6-5.0) 10/09/20 05:04 Chloride 105.1 mmol/L (98-107) 10/09/20 05:04 Carbon Dioxide 29 mmol/L (22-30) D 10/09/20 05:04 Anion Gap 13 mmol/L 10/09/20 05:04 BUN 13 mg/dL (7-17) 10/09/20 05:04 Creatinine 1.1 mg/dL (0.6-1.2) 10/09/20 05:04 Estimated GFR 52 ml/min 10/09/20 05:04 BUN/Creatinine Ratio 12 % 10/09/20 05:04 Glucose 138 mg/dL (65-100) H 10/09/20 05:04 Calcium 8.6 mg/dL (8.4-10.2) 10/09/20 05:04 Total Bilirubin 0.30 mg/dL (0.1-1.2) 10/07/20 19:32 AST 23 units/L (5-40) 10/07/20 19:32 ALT 16 units/L (7-56) 10/07/20 19:32 Alkaline Phosphatase 52 units/L (35-129) 10/07/20 19:32 Total Creatine Kinase 168 units/L (30-135) H 10/07/20 19:32 CK-MB (CK-2) 2.5 ng/mL (0.0-4.0) 10/07/20 19:32 CK-MB (CK-2) Rel Index 1.4 (0-4) 10/07/20 19:32 Troponin T < 0.010 ng/mL (0.00-0.029) 10/08/20 15:58 NT-Pro-B Natriuret Pep 98931 pg/mL (0-900) H 10/07/20 19:32 Total Protein 6.1 g/dL (6.3-8.2) L 10/07/20 19:32 Albumin 3.4 g/dL (3.9-5) L 10/07/20 19:32 Albumin/Globulin Ratio 1.3 % 10/07/20 19:32 Canela/IV: Voiding Method Toilet Active Medications - Current Medications Current Medications: Generic Name Dose Route Start Last Admin Trade Name Freq PRN Reason Stop Dose Admin Acetaminophen 650 mg 10/07/20 23:35 10/08/20 21:26 Acetaminophen 325 Mg Tab PO 650 mg Q4H PRN Administration Pain MILD(1-3)/Fever >100.5/RASMUSSEN Albuterol/Ipratropium 1 ampul 10/09/20 08:00 10/09/20 08:16 Ipratropium/Albuterol Sulfate 3 Ml Ampul.Neb IH Not Given TIDRT FABIAN Arformoterol Tartrate 15 mcg 10/08/20 08:00 10/09/20 08:13 Arformoterol 15 Mcg/2 Ml Nebu IH 15 mcg Q12HRT FABIAN Administration Aspirin 81 mg 10/09/20 10:00 10/09/20 09:21 Aspirin 81 Mg Tab Chew PO 81 mg QDAY FABIAN Administration Budesonide 0.5 mg 10/08/20 08:00 10/09/20 08:13 Budesonide 0.5 Mg/2 Ml Nebu IH 0.5 mg Q12HRT FABIAN Administration Enoxaparin Sodium 40 mg 10/08/20 22:00 10/08/20 21:24 Enoxaparin 40 Mg/0.4 Ml Inj SUB-Q 40 mg QDAY@2200 FABIAN Administration Protocol Furosemide 40 mg 10/08/20 06:00 10/09/20 05:39 Furosemide 40 Mg/4 Ml Inj IV 40 mg BID@0600,1800 FABIAN Administration Gabapentin 600 mg 10/08/20 12:00 10/09/20 09:20 Gabapentin 300 Mg Cap PO 600 mg BID FABIAN Administration Magnesium Hydroxide 30 ml 10/07/20 23:35 Magnesium Hydroxide (Mom) Oral Liqd Udc PO Q4H PRN Constipation Metoprolol Succinate 25 mg 10/09/20 10:00 10/09/20 09:19 Metoprolol Succinate Xl 25 Mg Tab PO 25 mg QDAY FABIAN Administration Morphine Sulfate 2 mg 10/07/20 23:35 10/08/20 08:05 Morphine 2 Mg/1 Ml Inj IV 2 mg Q4H PRN Administration Pain, Moderate (4-6) Ondansetron HCl 4 mg 10/07/20 23:35 Ondansetron 4 Mg/2 Ml Inj IV Q8H PRN Nausea And Vomiting Oxycodone/Acetaminophen 1 tab 10/08/20 11:30 10/09/20 05:40 Oxycodone /Acetaminophen 5-325mg Tab PO 1 tab Q8H PRN Administration Pain , Severe (7-10) Sertraline HCl 150 mg 10/08/20 12:00 10/09/20 09:20 Sertraline 100 Mg Tab PO 150 mg QDAY FABIAN Administration Sodium Chloride 10 ml 10/08/20 10:00 10/09/20 09:59 Sodium Chloride 0.9% 10 Ml Flush Syringe IV 10 ml BID FABIAN Administration Sodium Chloride 10 ml 10/07/20 23:35 10/08/20 05:05 Sodium Chloride 0.9% 10 Ml Flush Syringe IV 10 ml PRN PRN Administration LINE FLUSH Tizanidine HCl 4 mg 10/08/20 22:00 Tizanidine Tab 4 Mg Tab PO QHS PRN Muscle Spasm Trazodone HCl 100 mg 10/08/20 22:00 10/08/20 21:26 Trazodone 100 Mg Tab PO 100 mg QHS FABIAN Administration Ziprasidone 40 mg 10/09/20 07:30 10/09/20 09:58 Ziprasidone 40 Mg Cap PO 40 mg AC FABIAN Administration
--- NOTE | 2020-10-09 10:53 | Progress Note ---
Assessment and Plan tte reviewed - EF 40-45%, LV mildly dilated, abnormal diastolic function, pacemaker wire in RV, mild to mod MR, mod pulm HTN, large pleural effusion. Currently stable cardiac status. Pt appears to be nearing/at euvolemia. Chest pain currently resolved - appears pleuritic in etiology. LHC done in [place] in 07/2012 and 05/2019 showed normal coronaries. Pt may discharge from cardiology standpoint. At discharge, recommend conversion to PO lasix 40mg daily, cont all other present cardiac management. Recommend pt follow up in our office with Dr. Noe within 1-2 weeks ([phone]). Pt verbalizes understanding. The patient has been seen in conjunction with Dr. Raj Marshall who agrees with the assessment and plan of care. - Patient Problems (1) Acute HFrEF (heart failure with reduced ejection fraction) Current Visit: Yes Status: Acute (2) Pulmonary edema Current Visit: Yes Status: Acute (3) Chest pain Current Visit: Yes Status: Resolved (4) Accelerated hypertension Current Visit: Yes Status: Acute (5) History of PSVT (paroxysmal supraventricular tachycardia) Current Visit: Yes Status: Chronic (6) Cardiac pacemaker in situ Current Visit: Yes Status: Chronic (7) Diabetes Current Visit: Yes Status: Chronic (8) History of sarcoidosis Current Visit: Yes Status: Chronic (9) Normal coronary angiogram Current Visit: Yes Status: Chronic Subjective Date of service: 10/09/20 Principal diagnosis: HF Interval history: pt sitting up in bed, states she is feeling much better today, would like to be discharged home. tele reviewed - paced rhythm. Objective Last Vital Signs Temp 98.5 F 10/09/20 03:55 Pulse 69 10/09/20 09:19 Resp 17 10/09/20 08:00 BP 141/88 10/09/20 09:19 Pulse Ox 98 10/09/20 08:14 - Physical Examination General: No Apparent Distress HEENT: Positive: PERRL, Normocephaly, Mucus Membranes Moist Neck: Positive: neck supple, trachea midline Cardiac: Positive: Regular Rate, S1/S2 Lungs: Positive: Decreased Breath Sounds Neuro: Positive: Grossly Intact Abdomen: Negative: Tender Skin: Negative: Rash Musculoskeletal: No Pain Extremities: Absent: edema - Labs and Meds Comprehensive Metabolic Panel 10/09/20 Range/Units 05:04 Sodium 143 (137-145) mmol/L Potassium 3.6 (3.6-5.0) mmol/L Chloride 105.1 (98-107) mmol/L Carbon Dioxide 29 D (22-30) mmol/L BUN 13 (7-17) mg/dL Creatinine 1.1 (0.6-1.2) mg/dL Glucose 138 H (65-100) mg/dL Calcium 8.6 (8.4-10.2) mg/dL - Imaging and Cardiology EKG: report reviewed, image reviewed Echo: report reviewed (tte done 02/2020 showed EF 45-50%, grade II diastolic dysfunction, pacemaker wire in RV, mild MR. ) Cardiac cath: report reviewed (LHC done in [place] in 07/2012 and 05/2019 showed normal coronaries. ) - Telemetry EKG Rhythm: Paced Pacemaker: ventricular pacing w/capt
[2020-10-09] MEDS ORDERED: LOSARTAN 25 MG TAB PO SCH (11:00)
[2020-10-09 11:38] VITALS: BP 148/76
--- NOTE | 2020-10-09 12:11 | Discharge Summary ---
Providers - Providers Date of Admission: 10/07/20 22:51 Date of discharge: 10/09/20 Attending physician: CHRISTINE CONRAD 10/08/20 11:10 Consult to Physician [CONS] Routine Comment: Consulting Provider: AMOL DEL CASTILLO Physician Instructions: Reason For Exam: Shortness of breath /CHF Primary care physician: OWNER/PHOTOGRAPHER Hospitalization Condition: Fair Disposition: DC-01 TO HOME OR SELFCARE Time spent for discharge: 30 min Core Measure Documentation - Palliative Care Palliative Care/ Comfort Measures: Not Applicable - Core Measures Any of the following diagnoses?: none Exam - Constitutional Vitals: Temp Pulse Resp BP Pulse Ox 97.7 F 60 17 148/76 97 10/09/20 11:36 10/09/20 11:36 10/09/20 08:00 10/09/20 11:36 10/09/20 11:36 General appearance: Present: no acute distress, well-nourished - EENT Eyes: Present: PERRL, EOM intact - Neck Neck: Present: supple, normal ROM Plan Activity: advance as tolerated Diet: other (cardiac diet) Additional Instructions: f/u Cardiology office with Dr. Noe within 1-2 weeks ([phone]). If you have worsening symptoms contact MD or go to emergency room Follow up with: PRIMARY MD BIPIN [Primary Care Provider] - 3-5 Days THU NOE MD [Staff Physician] - 14 Days Prescriptions: Losartan [Cozaar] 25 mg PO QDAY #30 tablet Furosemide [Lasix TAB] 40 mg PO QDAY #30 tablet Metoprolol Xl [Metoprolol SUCCINATE ER TAB] 25 mg PO QDAY #30 tablet
== END 2020-10-09 15:55 | disposition home or self-care (01) ==
LOC: EDBD → ED 19:12 → 4A 22:51 → INTOOBSV 22:51
PROVIDERS: ADMIT Internal Medicine Geriatric Medicine; ATTEND Internal Medicine
DX: I11.0 Hypertensive heart disease with heart failure (principal); I50.21 Acute systolic (congestive) heart failure; J45.909 Unspecified asthma, uncomplicated; J81.1 Chronic pulmonary edema; F32.9 Major depressive disorder, single episode, unspecified; I47.1 Supraventricular tachycardia; E11.9 Type 2 diabetes mellitus without complications; I44.30 Unspecified atrioventricular block; G89.4 Chronic pain syndrome; G62.9 Polyneuropathy, unspecified; E66.9 Obesity, unspecified; D86.9 Sarcoidosis, unspecified; Z95.0 Presence of cardiac pacemaker; Z98.84 Bariatric surgery status; Z87.891 Personal history of nicotine dependence; Z68.33 Body mass index [BMI] 33.0-33.9, adult; Z79.82 Long term (current) use of aspirin
CPT/HCPCS: 36415; 71046; 80048; 80053; 82550; 82553; 83880; 84484; 85025; 85610; 93005; 93306; 94640; 94644; 96365; 96372; 96375; 96376; 99285; G0378; J1650; J1940; J2270; J2405; J2930; J3010; J3475

== ENCOUNTER 2021-07-02 09:44 | Day surgery (SDC) | payer MEDICARE ==
--- NOTE | 2021-07-02 08:55 | Short Stay Summary ---
Short Stay Documentation Date of service: 07/02/21 - History Principal diagnosis: PPM LUIS H&P: obtained from office Past Medical History: arrhythmia (AV block), cancer, heart failure, sarcoidosis, other (JOSE, chronic back pain) Past Surgical History: bowel surgery (gastric bypass), Other (PPM), no valve replacement, no CABG, no PTCA Social history: smoking, alcohol abuse (occasional) - Allergies and Medications Current Medications: Allergies No Known Allergies Allergy (Verified 10/07/20 19:17) Home Medications Medication Instructions Recorded Confirmed Last Taken Type Gabapentin [Neurontin] 600 mg PO BID 09/30/20 10/08/20 Unknown History Zolpidem [Ambien] 10 mg PO QHS PRN 09/30/20 10/08/20 Unknown History oxyCODONE /ACETAMINOPHEN [Percocet 1 tab PO Q8H PRN 09/30/20 10/08/20 Unknown History 5/325 mg] tiZANidine [Zanaflex 4mg TAB] 4 mg PO QHS PRN 09/30/20 10/08/20 Unknown History Sertraline [Zoloft] 150 mg PO QDAY 30 Days #30 tab 10/02/20 10/08/20 Unknown Rx Ziprasidone [Geodon] 80 mg PO HS 10/02/20 10/08/20 Unknown History traZODone [Desyrel] 100 mg PO QHS 10/02/20 10/08/20 Unknown History Ziprasidone [Geodon] 40 mg PO AC 10/08/20 10/08/20 Unknown History Furosemide [Lasix TAB] 40 mg PO QDAY #30 tablet 10/09/20 Unknown Rx Losartan [Cozaar] 25 mg PO QDAY #30 tablet 10/09/20 Unknown Rx Metoprolol Xl [Metoprolol 25 mg PO QDAY #30 tablet 10/09/20 Unknown Rx SUCCINATE ER TAB] - Physical exam General appearance: no acute distress Integumentary: no rash HEENT: Atraumatic, EOMI, Mucous membr. moist/pink Lungs: Clear to auscultation Heart: Normal S1, Normal S2 Gastrointestinal: normal Extremities: pulses intact, No edema, normal temperature, normal color Neurological: Normal speech, Normal tone, Sensation intact - Brief post op/procedure progress note Date of procedure: 07/02/21 Pre-op diagnosis: PPM LUIS Post-op diagnosis: other (S/p PPM Exchange) Surgeon: THU WATT Estimated blood loss: minimal Pathology: none Condition: stable - Hospital course Hospital course: Pt presented for elective PPM exchange. Tolerated procedure well. Currently stable with no complaints. Follow-up for incision check on 07/13/2021 @ 10:30am ([phone]). - Disposition Condition at discharge: Good Disposition: 01 HOME / SELF CARE / HOMELESS - Discharge Diagnoses (1) S/P placement of cardiac pacemaker Status: Chronic Short Stay Discharge Plan Activity: advance as tolerated Diet: low salt Wound: per your surgeon's advice Follow up with: THU WATT MD [Staff Physician] - 7 Days Forms: Pacemaker Exchange
[2021-07-02] MEDS ORDERED: SODIUM CHLORIDE 0.9% 1000 ML 1,000 ML IV SCH (10:30)
[2021-07-02] MEDS ORDERED: ceFAZolin/Water 2 GM/20 ML 2 GM/20 ML SYRINGE IV ONE (10:49)
[2021-07-02] MEDS ORDERED: SODIUM CHLORIDE 0.9% 500 ML 500 ML ONE (10:49)
[2021-07-02] MEDS ORDERED: SODIUM CHLORIDE IRRI 500 ML 500 ML IR ONE (10:51)
[2021-07-02 10:54] LABS: INR 0.96 (0.87-1.13)
[2021-07-02 10:55] LABS: Partial Thromboplastin Time 31.1 Sec. (24.2-36.6)
[2021-07-02 10:57] LABS: Calcium 8.9 mg/dL (8.4-10.2)
--- NOTE | 2021-07-02 11:14 | Anesthesia Consultation ---
Anesthesia Consult and Med Hx Date of service: 07/02/21 - Airway Anesthetic Teeth Evaluation: Good ROM Head & Neck: Adequate Mental/Hyoid Distance: Adequate Mallampati Class: Class II Intubation Access Assessment: Probably Good - Pulmonary Exam CTA: Yes - Cardiac Exam Cardiac Exam: RRR - Pre-Operative Health Status ASA Pre-Surgery Classification: ASA3 Proposed Anesthetic Plan: MAC - Pulmonary Hx Smoking: Yes (1 pack per week - Quit 1 month ago) Hx Asthma: Yes Hx Respiratory Symptoms: Yes (Hx of Sarcoidosis) SOB: No Hx Sleep Apnea: Yes (ON CPAP) - Cardiovascular System Hx Hypertension: Yes (CHF - EF 40-45% (09/2020), cardiac clearance on chart) Hx Cardia Arrhythmia: Yes (CHB, PVCs) Hx Pacemaker: Yes (SEPTEMBER 2001) - Central Nervous System Hx Seizures: No CVA: No Hx Back Pain: Yes (DDD - lumbar spine) Hx Psychiatric Problems: Yes - Gastrointestinal Hx Ulcer: No - Endocrine Hx Renal Disease: No Hx Liver Disease: No Hx Thyroid Disease: No - Hematic Hx Anemia: No - Other Systems Hx Alcohol Use: No Hx Substance Use: No Hx Cancer: No Hx Obesity: Yes (BMI 34) - Additional Comments Anesthesia Medical History Comments: No hx of anesthetic complications.
--- NOTE | 2021-07-02 11:14 | Anesthesia Day of Surgery ---
Anesthesia Day of Surgery - Day of Surgery Patient Examined: Yes Patient H&P Reviewed: Yes Patient is NPO: Yes Cardiac Clearance: Yes
[2021-07-02] MEDS ORDERED: SODIUM CHLORIDE IRRI 1000 ML 1,000 ML, .VANCOMYCIN VIAL 1,000 MG IR ONE (11:16)
[2021-07-02 11:40] LABS: Hematocrit 40.4 % (30.3-42.9); Mean Corpuscular HGB Conc 32 % (30-34); Mean Corpuscular Volume 94 fl (79-97); Platelet Count 162 K/mm3 (140-440); Red Blood Count 4.31 M/mm3 (3.65-5.03); Red Cell Distribution Width 15.2 % (13.2-15.2)
[2021-07-02] MEDS ORDERED: ePHEDrine SULFATE 50 MG/1 ML INJ ONE (11:48)
[2021-07-02] MEDS ORDERED: MIDAZOLAM 2 MG/2 ML INJ ONE (11:49)
[2021-07-02] MEDS ORDERED: fentaNYL 100 MCG/2 ML INJ ONE (11:49)
[2021-07-02] MEDS ORDERED: LIDOCAINE MPF (2%) 20 MG/1 ML VIAL 5 ML ONE (11:49)
[2021-07-02] MEDS ORDERED: KETAMINE/STERILE WATER 50 MG/ML SYRINGE ONE (11:54)
[2021-07-02] MEDS ORDERED: HEPARIN/NS 5000 UNIT/500ML 500 ML IR ONE (13:09)
[2021-07-02] MEDS ORDERED: LIDOCAINE (2%) 20 MG/1 ML VIAL 20 ML MDV INFILTRATI ONE (13:10)
[2021-07-02] MEDS: LIDOCAINE (2%) 20 MG/1 ML VIAL 20 ML MDV INFILTRATI ONE ×2 (13:55→14:05)
[2021-07-02] MEDS: BUPIVACAINE/PF (0.5%) 5 MG/1 ML 30 ML VIAL INFILTRATI ONE ×2 (13:55→14:05)
--- NOTE | 2021-07-02 17:21 | Post Anesthesia Evaluation ---
- Post Anesthesia Evaluation Patient Participated: Yes Airway Patent: Yes Stable Respiratory Function: Yes Nausea/Vomiting: No Temp > 96.8F: Yes Pain Manageable: Yes Adequeate Hydration: Yes Anesthesia Complications: No
[2021-07-02 18:11] VITALS: BP 111/65
--- NOTE | 2021-07-03 12:59 | Electrocardiograph Report ---
[facility] Test Date: 2021-07-02 Test Time: 11:33:03 Pat Name: TOÑA MAYER Department: Room: Gender: F Rn Radiology: WILEY : 1970 Requested By: THU WATT Order Number: [id number] Reading MD: Merlin Segura Measurements Intervals [place] Rate: 65 P: 0 UT: 184 QRS: 265 QRSD: 163 T: 124 QT: 495 QTc: 516 Interpretive Statements Ventricular-paced rhythm No previous ECG available for comparison Electronically Signed On 07-03-2021 12:59:15 EST by Merlin Segura
== END 2021-07-02 18:00 | disposition home or self-care (01) ==
LOC: CATHLABREC 09:44
PROVIDERS: ATTEND Internal Medicine Cardiovascular Disease
DX: Z45.010 Encounter for checking and testing of cardiac pacemaker pulse generator [battery] (principal); I11.0 Hypertensive heart disease with heart failure; I50.9 Heart failure, unspecified; J45.909 Unspecified asthma, uncomplicated; I49.9 Cardiac arrhythmia, unspecified; G47.33 Obstructive sleep apnea (adult) (pediatric); D86.9 Sarcoidosis, unspecified; E66.9 Obesity, unspecified; Z68.34 Body mass index [BMI] 34.0-34.9, adult; Z87.891 Personal history of nicotine dependence; Z79.899 Other long term (current) drug therapy; Z98.890 Other specified postprocedural states
CPT/HCPCS: 33228; 36415; 80048; 85027; 85610; 85730; 93005; C1785; C1894; J0690; J1644; J2250; J2704; J3010; J3370; J3490; J7030; J7040; 33210; Q0162